=== PATIENT | male | born 1960 | race Caucasian/White ===

== ENCOUNTER → 2020-06-17 | Outpatient (CLI) | payer MEDICARE, OTHER ==
[2020-06-18 01:20] LABS: African American GFR (CKD) 128.4 (60.0-200.0); Anion Gap 9.4 mmol/L (4.00-12.00); Calcium 8.3 mg/dL (8.7-10.3); Carbon Dioxide 27.6 mmol/L (21.6-31.8); Non-African American GFR(CKD) 110.8 (60.0-200.0); Potassium 3.9 mmol/L (3.5-5.5)
== END | disposition home or self-care (01) ==
LOC: LABWHC1 14:35
PROVIDERS: ATTEND Internal Medicine Cardiovascular Disease
DX: I50.32 Chronic diastolic (congestive) heart failure (principal)
CPT/HCPCS: 36415; 80048

== ENCOUNTER → 2020-08-14 | Outpatient (CLI) | payer MEDICARE ==
--- NOTE | 2020-08-14 15:26 | CTL ---
EXAMINATION TYPE: CT Low Dose Lung DATE OF EXAM ORDERED: 08/14/2020 HISTORY: 59-year-old male Z87.891, personal history of tobacco use. Lung cancer screening CT DLP: 64.[address] CTDI: 1.9 mGy Automated exposure control for dose reduction was used. SCREENING VISIT: Baseline COMPARISON: Radiograph 03/21/2015 TECHNIQUE: Low dose computed tomography scan was performed through the chest. Coronal and sagittal re constructions performed. Additional coronal MIP reconstruction. CT DIAGNOSTIC QUALITY: Satisfactory FINDINGS: Heart normal size without pericardial effusion. Mild scattered three-vessel coronary artery calcifica tions. Mild atelectatic arch calcifications with conventional branching anatomy. Large caliber to the main right and left pulmonary arteries at 3.0 x 2.8 cm, respectively, suggesting underlying pulmonary arterial hypertension. Size 1.0 cm precarinal lymph node shows a punctate calcification suggesting sequela of prior granulom atous disease. Moderate to large gynecomastia on the right and [id number] on the left. There is advanced emphysematous change throughout the lungs including the lung bases. Mild diffuse br onchial wall thickening. Normal variant azygos fissure. Right apical bulla measures up to 6.3 cm. No suspicious pulmonary nodules or masses. Small hiatal hernia. Visualized upper abdomen shows no gross abnormality. Bones: Dextroconvex curvature centered on the upper third thoracic spine. IMPRESSION: 1. BI-RADS 1; negative. No suspicious pulmonary nodules or masses. 2. COPD with severe emphysema. Right apical bulla measures up to 6.3 cm. 3. Associated pulmonary arterial hypertension. RECOMMENDATION: 1. Continue annual low-dose lung cancer screening CT. 2. Smoking cessation. FOLLOW UP CT CHEST RECOMMENDATION: [address] LUNG RAD: Lung-Rad 1 Negative
== END | disposition home or self-care (01) ==
LOC: RADCTMAIN 12:40
PROVIDERS: ATTEND Family Medicine
DX: Z12.2 Encounter for screening for malignant neoplasm of respiratory organs (principal); Z87.891 Personal history of nicotine dependence